=== PATIENT | male | born 1945 | race Caucasian/White ===

== ENCOUNTER → 2018-08-12 10:58 | Outpatient (CLI) | payer OTHER, SELFPAY ==
--- NOTE | 2018-08-12 11:06 | DI.CT.S_ITS ---
PROCEDURE: CT LUMBAR SPINE WO CON INDICATIONS: Lumbar stenosis with acute exacerbation status post pneumonia. The patient also gives a history of a fall. TECHNIQUE: Noncontrast 3 mm thick sections acquired from the T12 level to the sacrum. Sagittal and coronal reformats were constructed. For radiation dose reduction, the following was used: automated exposure control. COMPARISON: [facility], CR, SPINE LUMB MIN 4VW, 02/20/2017, 14:17. [facility], RF, LUMBAR MBB, 07/18/2017, 12:41. FINDINGS: Image quality: Excellent. Bones: No acute vertebral body compression fractures. No suspicious lytic or blastic bony lesions. Central spinal caliber is of normal overall caliber. No pars defects. There is moderate levoconvex lumbar scoliosis. T12-L1: The disc height is relatively well-preserved. Bridging osteophytes are seen anteriorly and on the left. No significant neural foraminal or central canal narrowing are seen. L1-L2: No significant abnormality is seen. L2-L3: Level within normal limits. L3-L4: The disc height is relatively well-preserved. Minimal generalized disc bulge is seen. Mild facet joint hypertrophy is seen. No significant neural foraminal or central canal narrowing are seen. L4-L5: Moderate loss of disc height is seen. Vacuum disc phenomenon is seen at this level. Endplate irregularity and sclerosis can be seen. Endplate osteophyte are seen, including posteriorly projecting endplate osteophytes, particularly on the right side. Mild facet joint hypertrophy is seen. There is moderate right-sided and mild to moderate left-sided neural foraminal narrowing seen. Mild central canal narrowing is seen. L5-S1: At least moderate loss of disc height is seen. Vacuum disc phenomenon is seen at this level. Endplate irregularity and sclerosis are seen. Endplate osteophytes are seen, including posteriorly projected endplate osteophytes. Moderate to severe bilateral neural foraminal narrowing is seen, left worse than right. Mild central canal narrowing is seen. Soft tissues: No retroperitoneal masses or hematomas. Visualized aorta is normal in caliber. Atherosclerotic calcification is noted. IMPRESSION: No acute bony abnormality is seen. Lower lumbar spine degenerative changes are seen, which are most prominent at the L5-S1 level, where there is moderate to severe bilateral neural foraminal narrowing. Levoconvex scoliosis. Dictated by: Simba Bentley M.D. on 08/12/2018 at 12:18 Approved by: Simba Bentley M.D. on 08/12/2018 at 12:23
== END ==
PROVIDERS: Visit Provider Physical Medicine & Rehabilitation
DX: M54.5 Low back pain (principal); M48.07 Spinal stenosis, lumbosacral region; M48.061 Spinal stenosis, lumbar region without neurogenic claudication; G89.29 Other chronic pain; F41.0 Panic disorder [episodic paroxysmal anxiety]; Z72.0 Tobacco use; Z95.0 Presence of cardiac pacemaker
CPT/HCPCS: 72131

== ENCOUNTER 2018-09-01 11:52 | Outpatient (CLI) | payer OTHER, SELFPAY ==
[2018-09-01] VITALS (9 sets, daily range): BP systolic 97–114; BP diastolic 56–79; PULSE 81–111; RESP 18–20; TEMP 36.3; O2SAT 97–100
--- NOTE | 2018-09-01 11:53 | DI.RAD.S_ITS ---
PROCEDURE: PAIN L INTERLAMINAR/CAUDAL INJ INDICATIONS: SPINAL STENOSIS FINDINGS: Fluoroscopic spot filming was performed to verify placement of spinal needles at the L5-S1 level(s), as labeled on the films. Appropriate location(s) of the needle tip(s) was confirmed by injection of iodinated contrast. Dictated by: Garrett Brown M.D. on 09/02/2018 at 10:29 Approved by: Garrett Brown M.D. on 09/02/2018 at 10:30
--- NOTE | 2018-09-01 13:15 | P.PCN_ITS ---
Procedures Date/Time Date of procedure: 09/01/18 Time of procedure: 13:13 General Procedure description: PROVIDER: Anupam Velásquez DO Operative Note PREOP DIAGNOSIS 1. HNP WITH RADICULAR FEATURES, 2. MULTILEVEL CENTRAL STENOSIS, POST OP DIAGNOSIS 1. HNP WITH RADICULAR FEATURES, 2. MULTILEVEL CENTRAL STENOSIS, PROCEDURES 1. FLUORSCOPICALLY GUIDED CONTRAST CONTROLLED INTERLAMINAR EPIDURAL STEROID INJECTION - L5/S1 PHYSICIAN: Anupam Velásquez DO INDICATIONS Raffi is referred for treatment of Bilateral Foraminal Stenosis L>R LE symptoms. FINDINGS Multilevel Central Spinal Stenosis with Nerve Root Compression DESCRIPTION OF PROCEDURE Fluoroscopically guided, contrast-controlled L5/S1 translaminar epidural steroid injection. Following denial of allergy and review of potential side effects and complications, including, but not necessarily limited to, infection, allergic reaction, local tissue breakdown, temporary as well as permanent nerve injury, paralysis, stroke and possible , the patient indicated that the patient understood and agreed to proceed. An informed consent document was signed by the patient, witnessed by a nurse, and placed in the patient's chart. Additionally, other treatment options including modalities, medications, and physical therapy were reviewed with the patient. After review of previous anaesthesic history and IV conscious sedation the patient was deemed safe to proceed with todays procedure with IV conscious sedation as ASA class II designation. Safety time-out was performed to confirm patient ID, procedure to be performed and site of procedure. IV sedation was accomplished with a combination of 5mg of Versed and 50,mcg of Fentanyl administered by the RN after DO order, titrated to patient comfort during the course of the procedure while the patient remained responsive to all verbal commands. In the prone position, following sterile prep and drape of the lumbar region, the L5/S1 translaminar space was identified fluoroscopically. The skin was anesthetized via a 25-gauge, 1.5-inch needle with 1% lidocaine solution. At this point, a 22-gauge short bevel spinal needle was atraumatically introduced and advanced under fluoroscopic guidance into the region of the L5/S1 translaminar space. Depth was confirmed on lateral view. Radiological data, including multiple fluoroscopic views of the lumbar spine, reveal a spinal needle at the L5/S1 translaminar space. Lateral views then show placement of the needle in the epidural space. Subsequent views show contrast material flowing superiorly and inferiorly in the epidural space. No vascular or intrathecal uptake is observed. At this point, using loss of resistance technique with saline and air, the epidural space was entered. This was confirmed following negative aspiration with injection of approximately 1.5 cc of Isovue 200, showing excellent epidural flow without vascular or intrathecal uptake. At this point, 1 cc of 1 % lidocaine solution combined with 3 cc or 20 mg of dexamethasone and 80mg Depo medrol was injected without incident. The patent tolerated the procedure without signs of symptoms of complications prior to transfer to the recovery area for further monitoring. The patient was then transferred to the recovery area where they were observed for an appropriate period of time after the injection. The patient reported a VAS score of 6 prior to the procedure and a post-procedure VAS of 0. Total Fluoroscopy Time: 11.8 seconds Total Conscious Sedation Time: 24min POST OP INSTRUCTIONS The patient was provided a Pain Log to continue to record their response to the target-specific procedure prior to follow-up visit with their referring physician. Additionally, specific post-injection care instructions and a contact number to our office were provided if concerns arise regarding possible complications associated with the procedure are suspected. Anupam Velásquez DO Complications: none
[2018-09-01] MEDS: DEXAMETHASONE 10 MG/ML VIAL 20 MG INJ (14:15)
[2018-09-01] MEDS: methylPREDNISolone acetate 80 MG/ML VIAL INJ (14:15)
[2018-09-01] MEDS: MIDAZOLAM 5 MG/5 ML VIAL IV (14:15)
[2018-09-01] MEDS: fentaNYL 100 MCG/2 ML INJ 50 MCG IV (14:15)
[2018-09-01] MEDS: IOPAMIDOL 15 ML VIAL 3 ML INJ (14:16)
[2018-09-01] MEDS: BUPIVACAINE 0.25% (PF) VIAL 2 ML INJ (14:16)
== END 2018-09-01 15:08 | disposition home or self-care (01) ==
LOC: RAD 11:53
PROVIDERS: Visit Provider Physical Medicine & Rehabilitation
DX: M48.061 Spinal stenosis, lumbar region without neurogenic claudication (principal); M51.17 Intervertebral disc disorders with radiculopathy, lumbosacral region; M48.07 Spinal stenosis, lumbosacral region
CPT/HCPCS: 62323; 99152; J1040; J1100; J2250; J3010